=== PATIENT | female | born 1975 | race Two or more races ===

== ENCOUNTER 2023-01-10 11:23 | Inpatient (IN) | payer OTHER ==
[~2023-01-10] VITALS: Ht 157.5 cm; Wt 60.8 kg
[2023-01-10] MEDS ORDERED: ZESTRIL40 M1 PO (11:34)
[2023-01-10] MEDS ORDERED: TOPROL XL50 M1 PO (11:34)
== END 2023-01-18 11:01 | disposition home or self-care (01) | DRG 743 ==
LOC: CIR.AMB 01-14 11:04 → EDSTATUS 01-14 11:17 → SURG 01-14 11:17 → O/R 01-15 06:54 → OB/GYN 01-15 06:54 → SURG 01-15 07:00 → OB/GYN 01-15 18:21
PROVIDERS: ADMIT Obstetrics & Gynecology; ATTEND Obstetrics & Gynecology
PROC: 0UQ20ZZ Repair Bilateral Ovaries, Open Approach (ICD-10-PCS; 2023-01-15)
PROC: 0UT90ZZ Resection of Uterus, Open Approach (ICD-10-PCS; principal; 2023-01-15 07:00)
DX: D25.1 Intramural leiomyoma of uterus (principal); D25.0 Submucous leiomyoma of uterus; D25.2 Subserosal leiomyoma of uterus; N72 Inflammatory disease of cervix uteri; Z20.822 Contact with and (suspected) exposure to COVID-19; N80.03 Adenomyosis of the uterus